=== PATIENT | male | born 1965 | race Two or more races ===

== ENCOUNTER 2016-07-12 01:24 | Emergency (ER) | payer OTHER ==
--- NOTE | 2016-07-12 01:57 | Emergency Department Record ---
History of Present Illness - General Chief complaint: Pain Stated complaint: LEFT WRIST/ARM PAIN Time Seen by Provider: 07/12/16 01:47 Source: Patient Mode of Arrival: Ambulatory - History of Present Illness Initial comments: The patient states that his left wrist has been causing him pain for about 3 weeks. He does not know of any injury he has done to it. He has a history of gout and was wondering if it is that or something like rheumatoid arthritis. In the past he has had gout and has been on allopurinol, but his PCP took him off it several years ago. On 06-27-16 he was seen at an emergency department for left chest and shoulder pain which has since resolved. He had blood work and CTA of his chest which returned normal, and he was placed on Mobic for it. He currently is taking indocin for this and was told by his PCP to stop the mobic. He denies other current areas of pain in his joints. MD Complaint: Extremity pain, Extremity swelling Onset/Timin -: Week(s) Location: Left, Arm Severity scale (1-10): 6 Quality: Aching, Dull Consistency: Constant Improves with: Nothing Worsens with: Exertion Associated Symptoms: Denies other symptoms - Related Data Home Medications Medication Instructions Recorded Confirmed Last Taken Hydrochlorothiazide [Hctz 25Mg] 25 mg PO DAILY 07/12/16 07/12/16 07/11/16 Indomethacin [Indocin] 50 mg PO TID 07/12/16 07/12/16 07/11/16 Losartan Potassium [Cozaar] 50 mg PO DAILY 07/12/16 07/12/16 07/11/16 Meloxicam [Mobic] 7.5 mg PO DAILY PRN 07/12/16 07/12/16 Unknown Previous Rx's Medication Instructions Recorded Hydrocodone/Acetaminophen [Clune 1 tab PO Q6H PRN #14 tab 07/12/16 5mg/325mg] Allergies Allergy/AdvReac Type Severity Reaction Status Date / Time No Known Drug Allergies Allergy Verified 07/12/16 01:28 Travel Screening - Travel/Exposure Within Last 30 Days Have you traveled within the last 30 days?: No - Travel Symptoms Symptom Screening: None Review of Systems Reviewed: No additional complaints except as noted below Constitutional: Reports: As per HPI. Denies: Chills, Fever, Malaise, Night sweats, Weakness, Weight change Eyes: Reports: As per HPI. Denies: Eye discharge, Eye pain, Photophobia, Vision change ENT: Reports: As per HPI. Denies: Congestion, Dental pain, Ear pain, Epistaxis , Hearing loss, Throat pain Respiratory: Reports: As per HPI. Denies: Cough, Dyspnea, Hemoptysis, Stridor, Wheezes Cardiovascular: Reports: As per HPI. Denies: Arrhythmia, Chest pain, Dyspnea on exertion, Edema, Murmurs, Orthopnea, Palpitations, Paroxysmal nocturnal dyspnea, Rheumatic Fever, Syncope Endocrine: Reports: As per HPI. Denies: Fatigue, Heat or cold intolerance, Polydipsia, Polyuria Gastrointestinal: Reports: As per HPI. Denies: Abdominal pain, Constipation, Diarrhea, Hematemesis, Hematochezia, Melena, Nausea, Vomiting Genitourinary: Reports: As per HPI. Denies: Dysuria, Frequency, Hematuria, Incontinence, Retention, Testicular pain, Testicular mass, Urgency Musculoskeletal: Reports: As per HPI. Denies: Arthralgia, Back pain, Gout, Joint swelling, Myalgia, Neck pain Skin: Reports: As per HPI. Denies: Bruising, Change in color, Change in hair/ nails, Lesions, Pruritus, Rash Neurological: Reports: As per HPI. Denies: Abnormal gait, Confusion, Headache, Numbness, Paresthesias, Seizure, Tingling, Tremors, Vertigo, Weakness Psychiatric: Reports: As per HPI. Denies: Anxiety, Auditory hallucinations, Depression, Homicidal thoughts, Suicidal thoughts, Visual hallucinations Hematological/Lymphatic: Reports: As per HPI. Denies: Anemia, Blood Clots, Easy bleeding, Easy bruising, Swollen glands Past Medical History - SOCIAL HISTORY Smoking Status: Never smoker - RESPIRATORY Hx Respiratory Disorders: Yes Hx Sleep Apnea: Yes Hx of CPAP: Yes - CARDIOVASCULAR Hx Cardio Disorders: Yes Hx Hypertension: Yes - NEURO Hx Neuro Disorders: No - GI Hx GI Disorders: No - Hx Genitourinary Disorders: Yes Hx Kidney Stones: Yes - ENDOCRINE Hx Endocrine Disorders: No - MUSCULOSKELETAL Hx Musculoskeletal Disorders: Yes Hx Gout: Yes - PSYCH Hx Psych Problems: No - HEMATOLOGY/ONCOLOGY Hx Hematology/Oncology Disorders: No Family Medical History Any Significant Family History?: Yes Hx Cancer: Brother/Sister Hx Diabetes: Father Hx Kidney Disease: Mother, Brother/Sister *Kidney Comment: kidney stones Hx Stroke: Father Physical Exam - General General Appearance: Alert, Oriented x3, Cooperative, No acute distress - Head Head exam: Normal inspection - Eye Eye exam: Normal appearance, PERRL Pupils: Normal accommodation - ENT ENT exam: Normal exam, Mucous membranes moist, Normal external ear exam, Normal orophraynx Ear exam: Normal external inspection. negative: External canal tenderness Nasal Exam: Normal inspection. negative: Discharge, Sinus tenderness Mouth exam: Normal external inspection, Tongue normal Teeth exam: Normal inspection. negative: Dental caries Throat exam: Normal inspection. negative: Tonsillar erythema, Tonsillar exudate - Neck Neck exam: Normal inspection, Full ROM. negative: Tenderness - Respiratory Respiratory exam: Normal lung sounds bilaterally. negative: Respiratory distress - Cardiovascular Cardiovascular Exam: Regular rate, Normal rhythm, Normal heart sounds - GI/Abdominal GI/Abdominal exam: Soft. negative: Tenderness - Rectal Rectal exam: Deferred - exam: Deferred - Extremities Extremities exam: Normal inspection, Full ROM, Normal capillary refill, Tenderness (right wrist with vague diffuse swelling and warmth without erythema , including around joints in hand as well. No point tenderness) - Back Back exam: Reports: Normal inspection, Full ROM. Denies: Muscle spasm, Rash noted, Tenderness - Neurological Neurological exam: Alert, Normal gait, Oriented X3, Reflexes normal - Psychiatric Psychiatric exam: Normal affect, Normal mood - Skin Skin exam: Dry, Intact, Normal color, Warm Course Vital Signs 07/12/16 01:31 Temperature 98.0 F Pulse Rate 96 H Respiratory 23 Rate Blood Pressure 171/93 Pulse Ox 97 - Reevaluation(s) Reevaluation #1: Patient states he wishes to go home and find his lab results at a later time since some may be send outs and may take several hours. He agrees to follow up with his PCP this week for recheck regarding these pending lab results and xray reading. 07/12/16 02:30 Medical Decision Making - Management Options MDM Management: Additional Work-up Planned (e.g. ADM/Transfer/OP Study) (Follow up with PCP in ofice for recheck next week) - Data Complexity MDM Data: Labs Ordered and/or Reviewed (labs remain pending at time of discharge ), X-Ray Ordered and/or Reviewed (Xray left wrist: punched out lesion at distal 5th metacarpal consistent with gouty arthritis per ed physician. Patient aware this is preliminary reading only.) Disposition Disposition: Discharge Clinical Impression: Chronic pain of left wrist Disposition: Home, Self-Care Condition: (1) Good Additional Instructions: Continue taking indocin as directed as this is suspicious for gouty arthritis. Clune as directed as needed for pain. Rajesh wrap to left wrist for comfort as needed. Follow up with PCP in office next week for recheck and review of results of blood work tonight and xray final reading. You have high blood pressure at this visit. Have PCP recheck and monitor this at your recheck with your PCP. Prescriptions: Hydrocodone/Acetaminophen [Clune 5mg/325mg] 1 tab PO Q6H PRN #14 tab PRN Reason: Pain - General Forms: Patient Portal Access
[2016-07-12 02:13] LABS: BASO % 0.4 % (0-6); EOS % 0.8 % (0-6); HEMATOCRIT 33.5 % (42.0-52.0); HEMOGLOBIN 11.1 gm/dl (14.0-18.0); LYMPH % 22.3 % (16-45); MEAN CELL VOLUME 92.3 fl (81-97); MEAN CORPUSCULAR HGB CONC 33.1 g/dl (32-36); MEAN PLATELET VOLUME 9.7 fl (7.4-10.4); MONO % 7.5 % (0-9); PLATELET COUNT 319 K/uL (130-400); RED BLOOD COUNT 3.63 M/uL (4.40-5.70); RED CELL DISTRIBUTION WIDTH 12.6 % (11.5-14.5); WHITE BLOOD COUNT W/O DIFF 7.3 K/uL (4.2-12.2)
[2016-07-12 02:25] LABS: ANION GAP 11.8 (7-16); BLOOD UREA NITROGEN 23 mg/dL (9-20); CARBON DIOXIDE 24.2 mmol/L (22-30); CREATININE 0.8 mg/dL (0.66-1.25); EST GLOMERULAR FILTRATION RATE > 60 ml/min; GLUCOSE,RANDOM 159 mg/dL (70-110); MEAN CORPUSCULAR HEMOGLOBIN 30.5 pg (27-33)
[2016-07-12] MEDS ORDERED: HYDROCODONE/APAP 5/325MG TABLET PO ONE ×2 (02:27→02:28)
[2016-07-12 02:41] LABS: C-REACTIVE PROTEIN 3.6 mg/dL (0.0-0.9)
[2016-07-12 02:48] LABS: ERYTHROCYTE SEDIMENTATION RATE 90 mm/hr (0-20)
--- NOTE | 2016-07-15 17:16 | RADIOLOGY REPORT ---
EXAM: WRIST, LEFT 3 VIEWS HISTORY: UNEXPLAINED PAIN AND SWELLING. TECHNIQUE: Three views of the left wrist. COMPARISON: None. ENCOUNTER: Initial. FINDINGS: There is no fracture or acute osseous abnormality. There is a positive ulnar variance. A small calcification is seen at the tip of the ulnar styloid possibly due to old injury or developmental variation. The radiocarpal joint spaces and carpal joints are unremarkable. There are arthritic changes in the metacarpophalangeal joints, which are not optimally assessed on this wrist study. Hand films could be performed for their further assessment. Arthritic changes appear greatest in the second, third, and fifth metacarpophalangeal joints. Some erosive changes could be present. IMPRESSION: 1. ARTHRITIC CHANGES IN THE METACARPOPHALANGEAL JOINTS. HAND FILMS ARE SUGGESTIVE FOR FURTHER ASSESSMENT. SOME EROSIVE CHANGES IN THE FIFTH METACARPOPHALANGEAL JOINT AND OVERLYING SOFT TISSUE SWELLING MAY BE PRESENT. 2. THERE IS A MILD POSITIVE ULNAR VARIANCE. 3. CALCIFICATION AT THE TIP OF THE ULNAR STYLOID LIKELY DUE TO OLD INJURY OR DEVELOPMENTAL VARIATION. JOB NUMBER: [id number] [facility] [place] [facility]
== END 2016-07-12 02:56 | disposition home or self-care (01) ==
LOC: ER 01:24
DX: G89.29 Other chronic pain (principal); M25.532 Pain in left wrist; I10 Essential (primary) hypertension
CPT/HCPCS: 80048; 84550; 85025; 85651; 86140; 86430; 99283; 99284